=== PATIENT | female | born 1995 | race Caucasian/White ===

== ENCOUNTER 2017-09-16 13:38 | Observation (INO) ==
[2017-09-16] MEDS ORDERED: Ondansetron ODT 4 MG TAB.RAPDIS SL ONE (14:01)
--- NOTE | 2017-09-16 14:03 | Emergency Department Note ---
Disposition Clinical Impression: Abdominal pain Qualifiers: Abdominal location: right lower quadrant Qualified Code(s): R10.31 - Right lower quadrant pain Acute appendicitis Qualifiers: Acute appendicitis type: unspecified acute appendicitis type Qualified Code(s) : K35.80 - Unspecified acute appendicitis Disposition: Admitted As Inpatient Condition: Good Referrals: Jabari Garcia MD [Primary Care Provider] - Forms: ED Satisfaction Letter, Work/School Release Time of Disposition: 17:39 General Adult HPI - General Chief complaint: ED Abdominal Pain Stated complaint: Abd Pain Time Seen by Provider: 09/16/17 13:50 Source: patient Limitations: no limitations Nursing Notes Reviewed: Yes Vital Signs Reviewed: Yes - History of Present Illness HPI Narrative: Mrs. Karimi is a very pleasant 22-year-old female with an unremarkable past medical history who presents to the [facility] emergency department with a chief complaint of abdominal pain. She reports this abdominal pain is sharp in nature and started when she woke up this morning at approximately 6 AM. She reports that this pain has not decreased in intensity. She has associated nausea without any emesis at this time. Patient reports that this pain is localized to her umbilicus that radiates down to the suprapubic region only. She reports the pain feels like "I need to go pee ". Patient did urinate after awakening this morning did not resolve this pain. She denies any dysuria, hematuria, melena or hematochezia. No history of this complaint previously. Patient is currently and sexually active. Her next menstrual period is expected to be next week. Patient is not taking any hjkh-[id number] medication for this complaint, however she is using hydrocodone as prescribed to her after she had a ganglion cyst removed last week by Dr. palma. No alcohol or tobacco abuse. No illicits. No prior surgical abdominal history. No other complaints at this time. Pain Scale: 8 - Related Data Previous Rx's Medication Instructions Recorded HYDROcodone/Acet 10/325 mg [[place] 1 tab PO Q6HR PRN 7 Days #28 tab 09/02/17 10-325 mg] Allergies Allergy/AdvReac Type Severity Reaction Status Date / Time Amoxicillin Allergy Rash Verified 09/02/17 08:13 Penicillins [PCN] Allergy Rash Verified 09/02/17 08:13 Review of Systems: Constitutional: No fever Vision: No blurred vision ENT: No rhinorrhea Respiratory: No cough Allergic: No allergies : No blood in urine GI: No blood in stool Hematologic: No bruising Dermatologic: No skin rash Musculoskeletal: No pain in the extremities Neuro: No numbness of the extremities Past Medical History - Past Medical History Medical history: Reports: no medical history Surgical history: Reports: no surgical history Psychiatric history: Reports: no psych history GEOTHERMAL TECHNICIAN history: Reports: no GEOTHERMAL TECHNICIAN history - Social History Smoking Status: Former smoker Smokeless Tobacco Status: No Alcohol use: Reports: rarely Drug use: Reports: none Physical Exam CONSTITUTIONAL: Alert and oriented X3 in no apparent distress HEAD: Normocephalic; atraumatic. Oropharynx: pink/moist RESP: NRD without use of accessory musculature, CTA b/l with no wheezes/rales/ rhonchi CARD: Regular rhythm, without murmurs, rubs, or gallop ABD: grossly normal, soft, tender to palpation about the umbilicus, suprapubic and RLQ regions, no guarding/distention/rigidity SKIN: normal appearance, no pallor/diaphoresis,mottling,jaundice,cyanosis EXT: DP/Rad pulses 2+ and symmetrical; no lateralizing edema; no other lesions seen PSYCH: appropriate mood/affect - General Limitations: no limitations General appearance: alert Course Course Narrative: Patient was seen and examined at bedside with grandmother present. Vital signs reviewed and unremarkable. Physical examination demonstrates tenderness to palpation about the umbilicus, suprapubic and RLQ regions. There is no distention, rigidity or rebound tenderness. Additional examination was otherwise benign. Patient is going complaining of some nausea but we will order some Zofran sublingual. We will begin workup with urinalysis, urine tests, CBC and BMP. Patient appears comfortable and declined further pain control. This plan was discussed with patient a grandmother who understand and agree. Results pending. 1531: Urinalysis unremarkable as well as CBC and BMP showing a mild leukocytosis of 12.5. UPT negative. She reports that her nausea has resolved and for Zofran. Again she declines further pain control and states that she is comfortable at this time. Given the continued abd pain, we will proceed with a CT abd pelvis with IV contrast as well as IV fluids. This plan was discussed with patient who agrees. 1716: CT showing appendiceal dilation as well as wall thickening consistent with signs of acute appendicitis. General surgery, Dr. Su, was contacted and discussed the case with him. No further recommendations and he accepted this patient for hospital admission. Patient is NPO. IV abx given. Last known meal was breakfast this morning at 7am. Patient was drinking water upon arrival to the ED. Disposition and plan was discussed with patient and family who understand and agree to this plan. All questions and concerns were addressed. Vital Signs Temperature 98.2 F 09/16/17 13:39 Pulse Rate 64 09/16/17 13:39 Respiratory Rate 14 09/16/17 13:39 Blood Pressure 116/72 09/16/17 13:39 O2 Sat by Pulse Oximetry 97 09/16/17 13:39 Temperature 98.2 F 09/16/17 13:39 Pulse Rate 63 09/16/17 16:18 Respiratory Rate 15 09/16/17 16:18 Blood Pressure 104/69 09/16/17 16:18 O2 Sat by Pulse Oximetry 97 09/16/17 16:18 Oxygen Delivery Oxygen Delivery Room Air Medical Decision Making - Medical Records Medical records reviewed: Yes I reviewed the patient's medical records. - Lab Data Lab results reviewed: Yes I reviewed the patient's lab results. Result diagrams: 09/16/17 14:15 09/16/17 14:15 Lab Results 09/16/17 09/16/17 09/16/17 Range/Units 13:52 13:52 14:15 WBC 12.5 H (4.3-11.1) K/mcL RBC 4.54 (3.82-4.97) M/mcL Hgb 13.8 (11.5-15.4) g/dL Hct 39.4 (35.3-44.9) % MCV 86.8 (83.0-100.0) fL MCH 30.4 (28.0-33.3) pg MCHC 35.0 (31.6-35.5) g/dL RDW 11.4 L (11.5-14.5) % Plt Count 167 (140-400) K/mcL MPV 9.1 L (9.4-12.4) fL Immature Gran % 0.5 (0-4) % Seg Neutrophils % 79.0 % Lymphocytes % 12.0 % Monocytes % 7.0 % Eosinophils % 1.2 % Basophils % 0.3 % Neutrophils # 9.9 H (1.6-8.9) K/mcL Lymphocytes # 1.5 (0.6-4.6) K/mcL Monocytes # 0.9 (0.0-1.3) K/mcL Eosinophils # 0.2 (0.0-0.6) K/mcL Basophils # 0.0 (0.0-0.2) K/mcL Sodium (136-145) mEq/L Potassium (3.5-5.1) mEq/L Chloride (98-107) mEq/L Carbon Dioxide (23-29) mEq/L BUN (6-20) mg/dL Creatinine (0.60-1.20) mg/dL Est GFR ( Amer) (> 60) Est GFR (Non-Af Amer) (> 60) BUN/Creatinine Ratio (6-26) Glucose (70-105) mg/dL Calculated Osmolality (280-300) Calcium (8.6-10.3) mg/dL Urine Color Yellow (Yellow) Urine Clarity Clear (Clear) Urine pH 5.5 (5.0-8.0) pH Units Ur Specific [place] 1.030 H (1.010-1.025) Urine Protein Negative (Neg-Trace) mg/dL Urine Glucose (UA) Normal (Normal) mg/dL Urine Ketones 40 H (Negative) mg/dL Urine Blood Negative (Negative) Urine Nitrite Negative (Negative) Urine Bilirubin Negative (Negative) Urine Urobilinogen Normal (Normal) mg/dL Ur Leukocyte Esterase Negative (Negative) Ur Culture Indicated? NO (NO) Urine Test Negative (Negative) 09/16/17 Range/Units 14:15 WBC (4.3-11.1) K/mcL RBC (3.82-4.97) M/mcL Hgb (11.5-15.4) g/dL Hct (35.3-44.9) % MCV (83.0-100.0) fL MCH (28.0-33.3) pg MCHC (31.6-35.5) g/dL RDW (11.5-14.5) % Plt Count (140-400) K/mcL MPV (9.4-12.4) fL Immature Gran % (0-4) % Seg Neutrophils % % Lymphocytes % % Monocytes % % Eosinophils % % Basophils % % Neutrophils # (1.6-8.9) K/mcL Lymphocytes # (0.6-4.6) K/mcL Monocytes # (0.0-1.3) K/mcL Eosinophils # (0.0-0.6) K/mcL Basophils # (0.0-0.2) K/mcL Sodium 134 L (136-145) mEq/L Potassium 3.8 (3.5-5.1) mEq/L Chloride 105 (98-107) mEq/L Carbon Dioxide 24 (23-29) mEq/L BUN 19 (6-20) mg/dL Creatinine 0.60 (0.60-1.20) mg/dL Est GFR ( Amer) > 60 (> 60) Est GFR (Non-Af Amer) > 60 (> 60) BUN/Creatinine Ratio 32 H (6-26) Glucose 92 (70-105) mg/dL Calculated Osmolality 280 (280-300) Calcium 9.0 (8.6-10.3) mg/dL Urine Color (Yellow) Urine Clarity (Clear) Urine pH (5.0-8.0) pH Units Ur Specific [place] (1.010-1.025) Urine Protein (Neg-Trace) mg/dL Urine Glucose (UA) (Normal) mg/dL Urine Ketones (Negative) mg/dL Urine Blood (Negative) Urine Nitrite (Negative) Urine Bilirubin (Negative) Urine Urobilinogen (Normal) mg/dL Ur Leukocyte Esterase (Negative) Ur Culture Indicated? (NO) Urine Test (Negative) - Radiology Data Radiology results reviewed: Yes I reviewed the patient's radiology results. Abdomen/Pelvis CT 09/16/17 15:30 IMPRESSION: Evaluation is limited by respiratory motion artifact. Having said that, there is still evidence of appendiceal dilation with wall thickening, concerning for acute appendicitis. No obvious rupture is identified at this time. D/ / Romain Clay MD / Romain Clay MD Interpreting Provider: Romain Clay MD
[2017-09-16 14:47] LABS: BUN/Creatinine Ratio 32 (6-26); Blood Urea Nitrogen 19 mg/dL (6-20); Carbon Dioxide 24 mEq/L (23-29); Chloride 105 mEq/L (98-107); Glucose 92 mg/dL (70-105); Osmolality,Calculated 280 (280-300); Potassium 3.8 mEq/L (3.5-5.1); Sodium 134 mEq/L (136-145); eGFR For African Americans > 60 (> 60); eGFR For Non-African Americans > 60 (> 60)
[2017-09-16 14:51] LABS: Bilirubin,Urine Negative (Negative); Blood,Urine Negative (Negative); Clarity,Urine Clear (Clear); Color,Urine Yellow (Yellow); Glucose,Urine (UA) Normal (Normal); Ketones,Urine 40 mg/dL (Negative); Leukocyte Esterase,Urine Negative (Negative); Nitrite,Urine Negative (Negative); PH,Urine 5.5 pH Units (5.0-8.0); Protein,Urine Negative (Neg-Trace); Urobilinogen,Urine Normal (Normal)
[2017-09-16 15:01] LABS: Basophils % 0.3 %; Eosinophils # 0.2 K/mcL (0.0-0.6); Eosinophils % 1.2 %; Hematocrit 39.4 % (35.3-44.9); Hemoglobin 13.8 g/dL (11.5-15.4); Immature Granulocytes % 0.5 % (0-4); Lymphocytes # 1.5 K/mcL (0.6-4.6); Mean Corpuscular Hemoglobin 30.4 pg (28.0-33.3); Mean Corpuscular Volume 86.8 fL (83.0-100.0); Mean Platelet Volume 9.1 fL (9.4-12.4); Monocytes # 0.9 K/mcL (0.0-1.3); Neutrophils # 9.9 K/mcL (1.6-8.9); Platelet Count 167 K/mcL (140-400); Red Blood Count 4.54 M/mcL (3.82-4.97); Red Cell Distribution Width 11.4 % (11.5-14.5)
[2017-09-16] MEDS ORDERED: 0.9 % Sodium Chloride 1,000 ML IVC ONE (15:30)
[2017-09-16] MEDS ORDERED: ceFAZolin 2,000 MG in Water for inj. (sterile) 20 ML IVP ONE (17:21)
--- NOTE | 2017-09-16 17:24 | Emergency Department Note ---
Disposition Clinical Impression: Acute appendicitis Abdominal pain Qualifiers: Abdominal location: right lower quadrant Qualified Code(s): R10.31 - Right lower quadrant pain Disposition: Admitted As Inpatient Condition: Good General Adult HPI - General Chief complaint: ED Abdominal Pain Stated complaint: Abd Pain Time Seen by Provider: 09/16/17 13:50 Source: patient Limitations: no limitations - History of Present Illness Pain Scale: 8 - Related Data Previous Rx's Medication Instructions Recorded HYDROcodone/Acet 10/325 mg [[place] 1 tab PO Q6HR PRN 7 Days #28 tab 09/02/17 10-325 mg] Allergies Allergy/AdvReac Type Severity Reaction Status Date / Time Amoxicillin Allergy Rash Verified 09/16/17 18:00 Penicillins [PCN] Allergy Rash Verified 09/16/17 18:00 Past Medical History - Past Medical History Medical history: Reports: no medical history Surgical history: Reports: no surgical history Psychiatric history: Reports: no psych history BEACH ATTENDANT history: Reports: no BEACH ATTENDANT history - Social History Smoking Status: Former smoker Smokeless Tobacco Status: No Alcohol use: Reports: rarely Drug use: Reports: none Physical Exam - General Limitations: no limitations General appearance: alert Course Vital Signs Temperature 98.2 F 09/16/17 13:39 Pulse Rate 64 09/16/17 13:39 Respiratory Rate 14 09/16/17 13:39 Blood Pressure 116/72 09/16/17 13:39 O2 Sat by Pulse Oximetry 97 09/16/17 13:39 Temperature 98.2 F 09/16/17 13:39 Pulse Rate 62 09/16/17 18:46 Respiratory Rate 15 09/16/17 18:46 Blood Pressure 108/64 09/16/17 18:46 O2 Sat by Pulse Oximetry 96 09/16/17 18:46 Oxygen Delivery Oxygen Delivery Room Air Medical Decision Making - Lab Data Result diagrams: 09/16/17 14:15 09/16/17 14:15 Lab Results 09/16/17 09/16/17 09/16/17 Range/Units 13:52 13:52 14:15 WBC 12.5 H (4.3-11.1) K/mcL RBC 4.54 (3.82-4.97) M/mcL Hgb 13.8 (11.5-15.4) g/dL Hct 39.4 (35.3-44.9) % MCV 86.8 (83.0-100.0) fL MCH 30.4 (28.0-33.3) pg MCHC 35.0 (31.6-35.5) g/dL RDW 11.4 L (11.5-14.5) % Plt Count 167 (140-400) K/mcL MPV 9.1 L (9.4-12.4) fL Immature Gran % 0.5 (0-4) % Seg Neutrophils % 79.0 % Lymphocytes % 12.0 % Monocytes % 7.0 % Eosinophils % 1.2 % Basophils % 0.3 % Neutrophils # 9.9 H (1.6-8.9) K/mcL Lymphocytes # 1.5 (0.6-4.6) K/mcL Monocytes # 0.9 (0.0-1.3) K/mcL Eosinophils # 0.2 (0.0-0.6) K/mcL Basophils # 0.0 (0.0-0.2) K/mcL Sodium (136-145) mEq/L Potassium (3.5-5.1) mEq/L Chloride (98-107) mEq/L Carbon Dioxide (23-29) mEq/L BUN (6-20) mg/dL Creatinine (0.60-1.20) mg/dL Est GFR ( Amer) (> 60) Est GFR (Non-Af Amer) (> 60) BUN/Creatinine Ratio (6-26) Glucose (70-105) mg/dL Calculated Osmolality (280-300) Calcium (8.6-10.3) mg/dL Urine Color Yellow (Yellow) Urine Clarity Clear (Clear) Urine pH 5.5 (5.0-8.0) pH Units Ur Specific [place] 1.030 H (1.010-1.025) Urine Protein Negative (Neg-Trace) mg/dL Urine Glucose (UA) Normal (Normal) mg/dL Urine Ketones 40 H (Negative) mg/dL Urine Blood Negative (Negative) Urine Nitrite Negative (Negative) Urine Bilirubin Negative (Negative) Urine Urobilinogen Normal (Normal) mg/dL Ur Leukocyte Esterase Negative (Negative) Ur Culture Indicated? NO (NO) Urine Test Negative (Negative) 09/16/17 Range/Units 14:15 WBC (4.3-11.1) K/mcL RBC (3.82-4.97) M/mcL Hgb (11.5-15.4) g/dL Hct (35.3-44.9) % MCV (83.0-100.0) fL MCH (28.0-33.3) pg MCHC (31.6-35.5) g/dL RDW (11.5-14.5) % Plt Count (140-400) K/mcL MPV (9.4-12.4) fL Immature Gran % (0-4) % Seg Neutrophils % % Lymphocytes % % Monocytes % % Eosinophils % % Basophils % % Neutrophils # (1.6-8.9) K/mcL Lymphocytes # (0.6-4.6) K/mcL Monocytes # (0.0-1.3) K/mcL Eosinophils # (0.0-0.6) K/mcL Basophils # (0.0-0.2) K/mcL Sodium 134 L (136-145) mEq/L Potassium 3.8 (3.5-5.1) mEq/L Chloride 105 (98-107) mEq/L Carbon Dioxide 24 (23-29) mEq/L BUN 19 (6-20) mg/dL Creatinine 0.60 (0.60-1.20) mg/dL Est GFR ( Amer) > 60 (> 60) Est GFR (Non-Af Amer) > 60 (> 60) BUN/Creatinine Ratio 32 H (6-26) Glucose 92 (70-105) mg/dL Calculated Osmolality 280 (280-300) Calcium 9.0 (8.6-10.3) mg/dL Urine Color (Yellow) Urine Clarity (Clear) Urine pH (5.0-8.0) pH Units Ur Specific [place] (1.010-1.025) Urine Protein (Neg-Trace) mg/dL Urine Glucose (UA) (Normal) mg/dL Urine Ketones (Negative) mg/dL Urine Blood (Negative) Urine Nitrite (Negative) Urine Bilirubin (Negative) Urine Urobilinogen (Normal) mg/dL Ur Leukocyte Esterase (Negative) Ur Culture Indicated? (NO) Urine Test (Negative) Attestation Statement - Attestation Attestation: I examined this patient and my medical decision-making was reviewed with the Resident Physician, Dr. Eden. I agree with the documented findings, disposition and treatment plan as described except to the extent set forth below. Patient is a 22-year-old white female who presents to the emergency room with family this morning for lower abdominal pain that began at 6 AM this morning acutely. Patient states that she hurts below her belly button diffusely on both sides and the pain has gradually worsened associated with some nausea. Patient denies any vomiting. She denies any bowel changes, no fevers or chills , no preceding cough or URI symptoms no sore throat. Patient denies any urinary symptoms or flank pain no abnormal vaginal bleeding or vaginal discharge. I agree with patient's physical exam findings as documented. Vital signs are stable. On my assessment patient had right lower quadrant tenderness with some mild guarding but no other peritoneal signs abdomen soft. On assessment I was concerned about possible appendicitis she does have a mild leukocytosis on her lab evaluation and a negative test. Patient was sent for CT abdomen and pelvis with IV contrast which showed evidence of acute appendicitis. Patient will be made nothing by mouth, antibiotics will be started we will contact Dr. villalobos his congressional aide for general surgery to the patient admitted for appendectomy. Patient remains hemodynamically stable at this time.
[2017-09-16] MEDS ORDERED: MetroNIDAZOLE 500 MG/100 ML 500 MG/100 ML BAG IVPB ONE (17:25)
[2017-09-16] MEDS ORDERED: *HR* OxyCODONE Immed Rel 5 MG TABLET PO PRN (20:35)
--- NOTE | 2017-09-16 20:48 | General Surg History&Physical ---
Date of Encounter: 09/16/17 Time of Encounter: 20:15 History of Present Illness Chief complaint: Right lower quadrant abdominal pain, acute appendicitis HPI: Ms. Karimi is a 22 year old female referred for further evaluation and treatment after presenting to [facility] ED with new onset right lower quadrant abdominal pain. Symptoms are described as beginning this morning and progressively worsening through the course of the day. The patient presented to the emergency department for further evaluation and treatment. Evaluation included labwork which showed a leukocytosis of 12.5 with 9.9% neutrophils. Electrolytes were notable for a sodium of 134 otherwise within normal limits including BUN/creatinine. CT abdomen/pelvis demonstrated appendiceal dilatation with wall thickening consistent with early acute appendicitis prompting a surgical referral. Past medical history: Unremarkable Surgical history: Recent excision ganglion cyst right foot Medications: Hydrocodone/acetaminophen following the foot surgery. Sutures were removed from the surgical site earlier today. The patient is on no other routine home at Allergies: Penicillin Social history: Patient admits to an occasional alcoholic beverage; she has never smoked; she denies any illicit drug use She is , lives at home with her spouse Family history: Noncontributory Physical examination: Age-appropriate woman resting comfortably in her hospital bed. She is 1.8 m tall, 86.18 kg, BMI 26.5 The patient has been afebrile; pulse 62, respirations 15, blood pressure 108/ 64; SPO2 on room air 96% Skin: Warm, no obvious jaundice; cutaneous tattoos are evident Lungs: Clear to auscultation bilaterally; no obvious pain on deep inspiration Cardiac: Regular rate, no appreciable murmurs Abdomen: Soft, with minimal tenderness in the right lower quadrant. No discernible intra-abdominal masses, no rebound. Hypoactive bowel sounds. The patient indicates her abdominal pain is diminished since her presentation to the emergency department Extremities: No obvious clubbing cyanosis or edema. Impression: 22-year-old female with new onset right lower quadrant abdominal pain with clinical and radiologic findings consistent with acute appendicitis. Surgery has been recommended and discussed in detail. Alternatives include nonoperative therapy with IV antibiotics and serial abdominal exams. The patient is a good candidate for laparoscopic appendectomy but understands the potential an open appendectomy may become necessary. Risks of surgery include hemorrhage, infection, intra-abdominal abscess, injury to adjacent structures such as bowel, small intestine, ureters, and bladder. If a normal appendix is encountered it will be removed to illuminate this potential diagnosis in the future. The patient has expressed understanding and is willing to proceed with surgery. The patient will be kept NPO but will be allowed to have sips of water and ice chips until 12MN; then meds only until surgery. Surgical consent has been obtained. Past Med Surg Social Fam HX - Past Medical History Medical history: no medical history Psychiatric history: no psych history - Past Surgical History Surgical History: no surgical history - Social History Smoking Status: Former smoker Smokeless Tobacco Status: No Alcohol use: rarely Drug use: none Medications and Allergies HYDROcodone/Acet 10/325 mg [[place] 10-325 mg] 1 tab PO Q6HR PRN 7 Days #28 tab [Rx] 3 Allergy/AdvReac Type Severity Reaction Status Date / Time Amoxicillin Allergy Rash Verified 09/16/17 18:00 Penicillins [PCN] Allergy Rash Verified 09/16/17 18:00 Review of Systems All systems PM: The remainder of the systems were reviewed and are negative General Surgery Exam Initial Vital Signs Temp Pulse Resp BP Pulse Ox 98.2 F 64 14 116/72 97 09/16/17 13:39 09/16/17 13:39 09/16/17 13:39 09/16/17 13:39 09/16/17 13:39 Results - Labs 09/16/17 14:15 09/16/17 14:15 Abnormal lab results WBC 12.5 K/mcL (4.3-11.1) H 09/16/17 14:15 RDW 11.4 % (11.5-14.5) L 09/16/17 14:15 MPV 9.1 fL (9.4-12.4) L 09/16/17 14:15 Neutrophils # 9.9 K/mcL (1.6-8.9) H 09/16/17 14:15 Sodium 134 mEq/L (136-145) L 09/16/17 14:15 BUN/Creatinine Ratio 32 (6-26) H 09/16/17 14:15 Ur Specific [place] 1.030 (1.010-1.025) H 09/16/17 13:52 Urine Ketones 40 mg/dL (Negative) H 09/16/17 13:52 All other labs normal.
[2017-09-16] MEDS: cefOXitin 1,000 MG in Water for inj. (sterile) 20 ML 10 ML IVPB SCH (21:11)
[2017-09-16] MEDS: Ringers Solution, Lactated 1,000 ML IVC SCH (21:13)
[2017-09-17] MEDS: cefOXitin 1,000 MG in Water for inj. (sterile) 20 ML 10 ML IVPB SCH (05:12)
[2017-09-17] MEDS ORDERED: *HR* Succinylcholine 200 MG/10 ML VIAL IVP ONE (07:01)
[2017-09-17] MEDS ORDERED: Ondansetron 4 MG/2 ML VIAL ONE (07:01)
[2017-09-17] MEDS ORDERED: Lidocaine -MPF 4% 5 ML AMPUL ONE (07:01)
[2017-09-17] MEDS ORDERED: Lidocaine -MPF 2% 2 ML VIAL ONE (07:01)
[2017-09-17] MEDS ORDERED: Dexamethasone 4 MG/ML VIAL ONE (07:01)
[2017-09-17] MEDS ORDERED: *HR* Rocuronium Bromide 50 MG/5 ML VIAL ONE (07:01)
[2017-09-17] MEDS: Ringers Solution, Lactated 1,000 ML IVC SCH (07:05)
[2017-09-17] MEDS ORDERED: *HR* FentaNYL (PF) 100 MCG/2 ML VIAL ONE (07:06)
[2017-09-17] MEDS ORDERED: *HR* Propofol 200 MG/20 ML VIAL IVP ONE (07:06)
[2017-09-17] MEDS ORDERED: *HR* Midazolam HCl 2 MG/2 ML VIAL ONE (07:06)
[2017-09-17] MEDS ORDERED: Neostigmine Methylsulfate 3 MG/3 ML SYRINGE ONE (07:13)
[2017-09-17] MEDS ORDERED: Bupivacaine/EPI 1:200k 0.25%PF 10 ML VIAL INFILT ONE (07:15)
--- NOTE | 2017-09-17 07:16 | Anesthesia Evaluation PreOp ---
Date of Encounter: 09/17/17 Time of Encounter: 07:08 - Past History Planned Operation: Lap Appy Cardiac History: Denies any Significant Hx Pulmonary History: Denies Any Significant HX SEPHORA PRODUCT CONSULTANT History: Denies Any Significant HX Other Medical History: Denies Any Significant HX Anesthesia History: No Prior Anesthetic Complications, Past Anesthesia ( Excision Ganglion cyst [R-foot] 08/2017,) Alcohol Use: rarely Drug use: none Medications and Allergies HYDROcodone/Acet 10/325 mg [[place] 10-325 mg] 1 tab PO Q6HR PRN 7 Days #28 tab [Rx] 3 Allergy/AdvReac Type Severity Reaction Status Date / Time Amoxicillin Allergy Rash Verified 09/16/17 18:00 Penicillins [PCN] Allergy Rash Verified 09/16/17 18:00 - Meds/Allergy Pre-op Review Medications Reviewed: Yes Allergies Reviewed: Yes Beta Blockers on Current Med List: No Anesthesia Results - Labs 09/16/17 14:15 09/16/17 14:15 Laboratory Tests 09/02/17 09/16/17 09/16/17 08:10 13:52 14:15 Est GFR (Non-Af Amer) > 60 POC Urine HCG, Qual Negative Urine Test Negative Anesthesia Exam O2 Sat Height 1.8 m Weight 85.998 kg Weight 86.183 kg O2 Sat by Pulse Oximetry 96 O2 Sat by Pulse Oximetry 96 O2 Sat by Pulse Oximetry 97 O2 Sat by Pulse Oximetry 96 O2 Sat by Pulse Oximetry 96 O2 Sat by Pulse Oximetry 97 O2 Sat by Pulse Oximetry 66 O2 Sat by Pulse Oximetry 97 Vital Signs Temp Pulse Resp BP Pulse Ox 98.2 F 64 14 116/72 97 09/16/17 13:39 09/16/17 13:39 09/16/17 13:39 09/16/17 13:39 09/16/17 13:39 Height: 5'11" Weight: 189# BMI = 26.4 NPO (# of Hours): MNoc Pain Scale Used: Numeric (1 - 10) - HEENT Pupil (Motor): Pupils equal, EOMI Mallampati: II Teeth: Normal Oral Opening: Greater than 3 - SEPHORA PRODUCT CONSULTANT LOC: Oriented [employer]PH[employer] PRODUCT CONSULTANT Motor: Normal RUE, Normal LUE, Normal RLE, Normal LLE, Normal Face [employer] PRODUCT CONSULTANT Sensory: Normal: RUE, LUE, RLE, LLE, Face - Cardiac Rhythm: Regular Murmur: None - Pulmonary Breath Sounds: bilateral Clear Respiratory Effort: Symmetrical Anesthesia Assess/Plan ASA Score: 1 Modified [place] Scale for Level of Consciousness: Cooperative, oriented, and tranquil Anesthetic Plan: General Monitoring Plan: Standard Monitors Recovery Plan: PACU Anes Supervising Prov Stmt: Pt seen/evaluated, R&B Discussed, questions answered and consent obtained. Rosalia Mcnamara MD
[2017-09-17] MEDS ORDERED: Acetaminophen IV 1,000 MG/100 ML INFUS..BTL ONE (07:20)
[2017-09-17] MEDS ORDERED: CefOXitin 2,000 MG VIAL ONE (08:04)
[2017-09-17] MEDS ORDERED: *HR* Promethazine 25 MG/ML VIAL IVP PRN (08:34)
[2017-09-17] MEDS ORDERED: Dexamethasone 4 MG/ML VIAL IVP ONE (08:34)
[2017-09-17] MEDS ORDERED: Ondansetron 4 MG/2 ML VIAL IVP ONE (08:34)
[2017-09-17] MEDS ORDERED: Ketorolac 30 MG/ML VIAL ONE (08:50)
[2017-09-17] MEDS: *HR* HYDROmorphone (PF) 1 MG/ML SYRINGE IVP PRN ×2 (09:21→09:28)
--- NOTE | 2017-09-17 09:21 | Operative Note ---
Date of procedure: 09/17/17 Pre-op diagnosis: Acute appendicitis Post-op diagnosis: same Procedure: Laparoscopic appendectomy Complications: None apparent Anesthesia: GETA Local Anesthetics: 0.25% Sensorcaine HCL with Epinephrine 1:200,000 SubQ (cc) ( 30 mL) Surgeon: Wisam Su Was there an preschool teacher assistant present: No Estimated blood loss (cc): 2 IV fluids (cc): 1,300 Specimen: appendix Condition: stable Disposition: PACU Procedure in Detail: The patient was brought to the operating room where she was placed supine on the operating room table. The patient was appropriately identified as to person and procedure. The accuracy of this information was confirmed by the patient and procedure team. The patient was then intubated and anesthetized under the supervision of Dr. Manisha Colon. The abdomen was examined under anesthesia, there were no palpable masses identified. The abdomen was then prepped and draped in usual sterile fashion. Several milliliters of 0.25% bupivacaine with 1-200,000 units epinephrine was infiltrated into the infraumbilical skin. A small transverse incision was made, dissection was extended to the fascia. The fascia was grasped and elevated. Additional bupivacaine with epinephrine was infiltrated before the fascia was incised. An 11 mm Xcel port was established. The rigid laparoscope was placed within the obturator to visualize passage through the layers of the anterior abdominal wall. When the abdomen was accessed, the obturator was replaced by the rigid laparoscope, the abdomen was insufflated with gaseous carbon dioxide. There was no obvious visible injury from establishing the port. Under direct visualization a 5 mm port was established in the suprapubic abdomen and in the left lower quadrant, midclavicular line. Each site was infiltrated with the bupivacaine with epinephrine solution. The cecum was grasped and elevated. An acutely inflamed, nonperforated appendicitis was evident. The mesoappendix was dissected at the junction of the appendix with the cecum. The appendix was transected at its junction with the cecum using a Ethicon ATS 45 mm stapler ( blue cartridge). The mesoappendix was transected with a second application of the Ethicon ATS 45 mm stapler using a vascular cartridge. When the appendix was from the surrounding structures it was placed in an endoscopic pouch and removed via the infraumbilical opening. The appendix was recovered and sent to pathology. The staple lines were inspected and found to be intact. Hemostasis was adequate. There was no other obvious pathology identified within the abdomen or pelvis. The pneumoperitoneum was evacuated. The endoscopic instrumentation removed. The fascia of the infraumbilical opening was approximated with interrupted [id number] 0 Vicryl using S retractors. The port sites were closed with subcuticular 4-0 Vicryl. The incisions were sealed with Dermabond dermal adhesive. The patient was taken to recovery in stable condition. Needle, sponge, and instrument counts were correct at the close of the case. Total volume of 0.25% bupivacaine with 1 200,000 epinephrine , 30 mL.
[2017-09-17] MEDS ORDERED: *HR* OxyCODONE Immed Rel 5 MG TABLET PO ONE (09:50)
[2017-09-17] MEDS ORDERED: Acetaminophen 325 MG TABLET PO PRN (10:14)
[2017-09-17] MEDS ORDERED: Ringers Solution, Lactated 1,000 ML IVC SCH (10:14)
[2017-09-17] MEDS ORDERED: *HR* OxyCODONE/APAP 5/325 TABLET PO PRN (10:14)
[2017-09-17] MEDS ORDERED: Ondansetron 4 MG/2 ML VIAL IVP PRN (10:14)
[2017-09-17] MEDS ORDERED: Ringers Solution, Lactated 500 ML IVC ONE (10:14)
[2017-09-17 13:25] VITALS: BP 92/54
--- NOTE | 2017-09-17 13:25 | Discharge Summary ---
Outpatient Proc Discharge Plan - Plan Additional Instructions: Regular diet Patient may shower, wash incisions with soap and water Activities as tolerated; lifting limited to less than 20 [address] for at least 24 hours following administration of anesthesia Tylenol, ibuprofen, Motrin, Advil, Aleve, etc. as needed for pain Prescription for hydrocodone 5/325, #16, one every 6 hours as needed for pain not relieved by [id number] medications Outpatient follow-up in the office; 09/25/17; patient: Office in a.m. to make this appointment Prescriptions: HYDROcodone/Acet 5/325 mg [[place] 5-325 mg] 1 tab PO Q6H PRN 4 Days #16 tab PRN Reason: Pain Home Medications: HYDROcodone/Acet 10/325 mg [[place] 10-325 mg] 1 tab PO Q6HR PRN 7 Days #28 tab [Rx] Acetaminophen [Tylenol] 650 mg PO Q6HR PRN tablet 09/17/17 [Rx] HYDROcodone/Acet 5/325 mg [[place] 5-325 mg] 1 tab PO Q6H PRN 4 Days #16 tab 09/17 [Rx]
--- NOTE | 2017-09-17 16:49 | Anesthesia Evaluation Post Op ---
Date of Encounter: 09/17/17 Time of Encounter: 10:15 - Vital Signs Vital Signs: Vital Signs Temp Pulse Resp BP Pulse Ox 09/17/17 10:07 97.8 F 55 13 102/64 96 09/17/17 09:57 54 10 100/63 96 09/17/17 09:47 52 11 100/71 95 09/17/17 09:37 97.8 F 55 11 101/66 97 09/17/17 09:27 56 12 103/69 98 09/17/17 09:17 54 13 106/69 99 09/17/17 09:07 97.4 F L 60 12 100/60 98 Intake and Output 09/17/17 09/17/17 09/17/17 07:59 15:59 23:59 Intake Total 1010 / 1010 360 / 360 Output Total 100 / 100 2 / 2 Balance 910 / 910 358 / 358 Intake: IV Fluids 1010 / 1010 Lactated Ringers 1,000 ML @ 100 1000 / 1000 mls/hr IVC .Q10H DIANA Rx#: [id number] Mefoxin 1,000 MG In Water for inj. (sterile) 10 ML @ 150 mls/ hr IVPB Q8H DIANA Rx#:[id number] Oral 0 / 0 360 / 360 Output: Urine 100 / 100 Estimated Blood Loss 2 / 2 Other: Meal Lunch Percent of Meal Consumed 100% Weight 85.998 kg Blood Glucose* 71 Patient Weight 09/17/17 23:59 Weight 85.998 kg - Lungs Lungs: Clear Ascult./Percussion - Airway Airway: Non-obstructed - Cardiovascular Regular Rate - Mental Status Mental Status: Alert & Oriented, Answers Appropriately - Pain Pain Scale: 3 Pain Scale used: Numeric (1 - 10) - Nausea Vomiting Nausea Vomiting: Not Present - Hydration Hydration: Tolerates oral liquids, Has not voided - Discharge PostOp Status: Transfer Patient to floor Anes Supervising Prov Stmt: Pt seen/evaluated, VSS And pt has met criteria for discharge to floor. - MD Naima
== END 2017-09-17 13:52 | disposition home or self-care (01) ==
LOC: EMEROO 13:38 → 3ANU 13:38
PROVIDERS: ADMIT Surgery; ATTEND Surgery

== ENCOUNTER → 2021-06-19 16:57 | Observation (INO) ==
[2021-06-19 15:37] LABS: Basophils % 0.2 %; Eosinophils # 0.1 K/mcL (0.0-0.6); Eosinophils % 1.2 %; Hematocrit 39.3 % (35.3-44.9); Hemoglobin 13.1 g/dL (11.5-15.4); Immature Granulocytes % 0.4 % (0-4); Lymphocytes # 0.8 K/mcL (0.6-4.6); Mean Corpuscular HGB Conc 33.3 g/dL (31.6-35.5); Mean Corpuscular Hemoglobin 27.3 pg (28.0-33.3); Mean Platelet Volume 9.5 fL (9.4-12.4); Monocytes # 0.6 K/mcL (0.0-1.3); Monocytes % 7.1 %; Neutrophils # 7.4 K/mcL (1.6-8.9); Platelet Count 189 K/mcL (140-400); Red Blood Count 4.79 M/mcL (3.82-4.97); Segmented Neutrophils % 82.1 %
[2021-06-19 15:53] LABS: Alanine Aminotransferase 26 Units/L (7-52); Aspartate Amino Transferase 21 Units/L (13-39); BUN/Creatinine Ratio 15 (6-26); Blood Urea Nitrogen 9 mg/dL (6-20); Lactate Dehydrogenase 141 Units/L (140-271); Uric Acid 3.3 mg/dL (2.3-7.6); eGFR For African Americans > 60 (> 60); eGFR For Non-African Americans > 60 (> 60)
[2021-06-19 16:20] LABS: Protein/Creatinine Ratio,Urine 0.14 mg/mg (0.00-0.20)
[2021-06-19 16:48] LABS: Bacteria,Urine Moderate per hpf (None-Few); Bilirubin,Urine Negative (Negative); Blood,Urine Negative (Negative); Calcium Oxalate Crystals,Urine Present per hpf; Clarity,Urine Ex.Turbid (Clear); Color,Urine Yellow (Yellow); Glucose,Urine (UA) Normal (Normal); Ketones,Urine Negative (Negative); Leukocyte Esterase,Urine Small (Negative); Mucus,Urine Many per lpf (None-Few); Nitrite,Urine Negative (Negative); Protein,Urine 200 mg/dL (Neg-Trace); Renal Epithelial Cells,Urine Few per hpf (None-Few); Specific Gravity,Urine > 1.030 (1.010-1.025); Squamous Epithelial Cell,Urine Moderate per hpf (None-Few); Transitional Epi Cells,Urine Few per hpf (None-Few); Urobilinogen,Urine Normal (Normal); WBC,Urine 50-100 per hpf (0-3)
== END | disposition home or self-care (01) ==
LOC: 1NENULAB
PROVIDERS: ADMIT Registered Nurse; ATTEND Registered Nurse

== ENCOUNTER → 2021-07-29 23:41 | Observation (INO) | END | disposition home or self-care (01) | LOC: 1NENULAB | PROVIDERS: ADMIT Student in an Organized Health Care Education/Training Program; ATTEND Student in an Organized Health Care Education/Training Program ==

== ENCOUNTER 2021-08-01 05:59 | Inpatient (IN) ==
[2021-08-01] MEDS ORDERED: Naloxone 0.4 MG/ML INJ IVP PRN ×2 (06:19→19:18)
[2021-08-01] MEDS ORDERED: miSOPROStoL 25 MCG TABLET PO PRN (06:19)
[2021-08-01] MEDS ORDERED: Azithromycin 500 MG in 0.9 % Sodium Chloride 250 ML IVPB PRN (06:19)
[2021-08-01] MEDS ORDERED: Metoclopramide 10 MG/2 ML VIAL IVP PRN (06:19)
[2021-08-01] MEDS ORDERED: Famotidine 20 MG/2 ML VIAL IVP PRN (06:19)
[2021-08-01] MEDS ORDERED: Ondansetron 4 MG/2 ML VIAL IVP PRN ×2 (06:19→19:18)
[2021-08-01 08:26] LABS: Basophils % 0.3 %; Eosinophils # 0.1 K/mcL (0.0-0.6); Eosinophils % 1.1 %; Hemoglobin 12.3 g/dL (11.5-15.4); Immature Granulocytes % 0.6 % (0-4); Lymphocytes # 1.7 K/mcL (0.6-4.6); Lymphocytes % 21.2 %; Mean Corpuscular HGB Conc 33.2 g/dL (31.6-35.5); Mean Corpuscular Volume 81.1 fL (83.0-100.0); Mean Platelet Volume 9.9 fL (9.4-12.4); Monocytes # 0.7 K/mcL (0.0-1.3); Monocytes % 8.3 %; Neutrophils # 5.5 K/mcL (1.6-8.9); Platelet Count 228 K/mcL (140-400); Red Blood Count 4.56 M/mcL (3.82-4.97); Red Cell Distribution Width 13.1 % (11.5-14.5); Segmented Neutrophils % 68.5 %
[2021-08-01 08:46] LABS: Influenza A PCR Negative (Negative); Influenza B PCR Negative (Negative); Resp. Syncytial Virus PCR Negative (Negative)
[2021-08-01 08:51] LABS: SARS-CoV-2 by PCR (In House) Negative (Negative)
[2021-08-01 09:24] LABS: Bilirubin,Urine Negative (Negative); Blood,Urine Negative (Negative); Clarity,Urine Turbid (Clear); Color,Urine Yellow (Yellow); Glucose,Urine (UA) Normal (Normal); Ketones,Urine Trace mg/dL (Negative); Leukocyte Esterase,Urine Negative (Negative); Nitrite,Urine Negative (Negative); Protein,Urine 100 mg/dL (Neg-Trace); Specific Gravity,Urine > 1.030 (1.010-1.025)
[2021-08-01 09:25] LABS: Calcium Oxalate Crystals,Urine Present per hpf; Squamous Epithelial Cell,Urine Few per hpf (None-Few); WBC,Urine 0-3 per hpf (0-3)
[2021-08-01 09:26] LABS: Bacteria,Urine Few per hpf (None-Few)
[2021-08-01] MEDS: *HR* Nalbuphine 10 MG/ML AMPUL IV PRN ×2 (11:33→13:34)
[2021-08-01] MEDS ORDERED: Oxytocin 20 units/ LR 1000 mL 20 UNIT/1,000 ML BAG IVC SCH (13:30)
[2021-08-01] MEDS: Ringers Solution, Lactated 1,000 ML IVC SCH ×4 (13:33→22:19)
[2021-08-01] MEDS ORDERED: Epidural Premix (fent/bupiv) 110 ML EP ONE (18:39)
[2021-08-01] MEDS ORDERED: Ropivacaine/PF 0.2% 20 ML VIAL ONE (18:40)
[2021-08-01] MEDS ORDERED: *HR* FentaNYL (PF) 100 MCG/2 ML VIAL EP ONE (19:18)
[2021-08-01] MEDS ORDERED: EPHEDrine 50 MG/ML VIAL IVP PRN (19:18)
[2021-08-01] MEDS ORDERED: Ropivacaine/PF 0.2% 20 ML VIAL EP ONE (19:18)
[2021-08-01] MEDS ORDERED: Epidural Premix (fent/bupiv) 110 ML EP SCH (19:30)
[2021-08-02] MEDS ORDERED: *HR* Ropivacaine/PF 0.5% 20 ML VIAL ONE (03:23)
[2021-08-02] MEDS ORDERED: *HR* FentaNYL (PF) 100 MCG/2 ML VIAL ONE ×3 (07:34→13:57)
[2021-08-02] MEDS ORDERED: Ropivacaine/PF 0.2% 20 ML VIAL ONE (07:34)
[2021-08-02] MEDS ORDERED: Bupivacaine-MPF 0.25% 10 ML VIAL ONE (07:41)
[2021-08-02] MEDS: Ringers Solution, Lactated 1,000 ML IVC SCH (12:27)
[2021-08-02] MEDS ORDERED: Oxytocin 20 units/ LR 1000 mL 20 UNIT/1,000 ML BAG IVC ONE (12:32)
[2021-08-02] MEDS ORDERED: Metoclopramide 10 MG/2 ML VIAL IVP ONE (12:32)
[2021-08-02] MEDS ORDERED: SODIUM CHLORIDE 0.9% IVPB ONE (12:32)
[2021-08-02] MEDS ORDERED: Famotidine 20 MG/2 ML VIAL IVP ONE (12:32)
[2021-08-02] MEDS ORDERED: Clindamycin 900 MG/50 ML 900 MG/50 ML IV.SOLN IVPB ONE (12:32)
[2021-08-02] MEDS ORDERED: GENTAMICIN IVPB ONE (12:32)
[2021-08-02] MEDS ORDERED: Lidocaine/EPI 1:200k 2% PF 20 ML VIAL ONE ×2 (13:24→13:57)
[2021-08-02] MEDS ORDERED: Ondansetron 4 MG/2 ML VIAL ONE (13:34)
[2021-08-02] MEDS ORDERED: *HR* Oxytocin 10 UNIT/ML VIAL ONE (14:21)
[2021-08-02] MEDS ORDERED: *HR* Midazolam HCl 2 MG/2 ML VIAL ONE (14:24)
[2021-08-02] MEDS ORDERED: Acetaminophen IV 1,000 MG/100 ML BAG IVPB ONE (14:27)
[2021-08-02] MEDS ORDERED: *HR* Morphine Sulfate/PF 10 MG/10 ML AMPUL ONE (14:35)
[2021-08-02] MEDS ORDERED: Ketorolac 30 MG/ML VIAL ONE (15:11)
[2021-08-02] MEDS ORDERED: *HR* FentaNYL (PF) 100 MCG/2 ML VIAL IVP PRN (15:44)
[2021-08-02] MEDS ORDERED: *HR* OxyCODONE Immed Rel 5 MG TABLET PO PRN (15:44)
[2021-08-02] MEDS ORDERED: Promethazine 6.25 MG in Water for inj. (sterile) 20 ML IVPB PRN (15:44)
[2021-08-02] MEDS ORDERED: Naloxone 0.4 MG/ML INJ IVP PRN (15:44)
[2021-08-02] MEDS ORDERED: Oxytocin 20 units/ LR 1000 mL 20 UNIT/1,000 ML BAG IVC SCH ×2 (18:06)
[2021-08-02] MEDS ORDERED: Ondansetron 4 MG/2 ML VIAL IVP PRN (18:06)
[2021-08-02] MEDS ORDERED: Metoclopramide 10 MG/2 ML VIAL IVP PRN (18:06)
[2021-08-02] MEDS: Acetaminophen 325 MG TABLET PO SCH ×2 (18:58→20:23)
[2021-08-02] MEDS: Ibuprofen 600 MG TABLET PO SCH ×2 (18:58→20:24)
[2021-08-02] MEDS: metroNIDAZOLE 500 MG TABLET PO SCH (20:24)
[2021-08-02] MEDS ORDERED: *HR* Enoxaparin 60 MG/0.6 ML SYRINGE SQ SCH (21:00)
[2021-08-03] MEDS: Ibuprofen 600 MG TABLET PO SCH ×3 (04:53→17:56)
[2021-08-03] MEDS: Acetaminophen 325 MG TABLET PO SCH ×3 (04:53→18:22)
[2021-08-03] MEDS: *HR* OxyCODONE Immed Rel 5 MG TABLET PO PRN ×5 (04:54→22:45)
[2021-08-03] MEDS: *HR* Enoxaparin 60 MG/0.6 ML SYRINGE SQ SCH ×2 (04:56→18:22)
[2021-08-03 05:27] LABS: Basophils % 0.1 %; Eosinophils % 0.2 %; Hematocrit 32.1 % (35.3-44.9); Immature Granulocytes % 0.5 % (0-4); Lymphocytes # 0.8 K/mcL (0.6-4.6); Lymphocytes % 4.6 %; Mean Corpuscular HGB Conc 32.7 g/dL (31.6-35.5); Mean Corpuscular Hemoglobin 26.6 pg (28.0-33.3); Mean Corpuscular Volume 81.5 fL (83.0-100.0); Mean Platelet Volume 9.8 fL (9.4-12.4); Monocytes # 0.9 K/mcL (0.0-1.3); Monocytes % 5.5 %; Neutrophils # 14.8 K/mcL (1.6-8.9); Platelet Count 181 K/mcL (140-400); Red Blood Count 3.94 M/mcL (3.82-4.97); Red Cell Distribution Width 13.2 % (11.5-14.5); Segmented Neutrophils % 89.1 %
[2021-08-03 05:41] LABS: Hemoglobin 10.5 g/dL (11.5-15.4); White Blood Count 16.6 K/mcL (4.3-11.1)
[2021-08-03] MEDS: Prenatal Vit/FA 1 EACH TABLET PO SCH (09:53)
[2021-08-03] MEDS: Simethicone 80 MG TAB.CHEW PO PRN ×2 (09:54→17:58)
[2021-08-03] MEDS: metroNIDAZOLE 500 MG TABLET PO SCH ×3 (09:54→20:52)
[2021-08-03] MEDS ORDERED: *HR* OxyCODONE Immed Rel 5 MG TABLET PO ONE (18:31)
[2021-08-04] MEDS: Acetaminophen 325 MG TABLET PO SCH ×5 (00:06→21:04)
[2021-08-04] MEDS: Ibuprofen 600 MG TABLET PO SCH ×4 (00:06→21:04)
[2021-08-04] MEDS: *HR* OxyCODONE Immed Rel 5 MG TABLET PO PRN ×4 (02:47→21:05)
[2021-08-04] MEDS: Simethicone 80 MG TAB.CHEW PO PRN (03:40)
[2021-08-04] MEDS: *HR* Enoxaparin 60 MG/0.6 ML SYRINGE SQ SCH ×2 (06:57→18:01)
[2021-08-04] MEDS: Prenatal Vit/FA 1 EACH TABLET PO SCH (08:34)
[2021-08-04] MEDS: metroNIDAZOLE 500 MG TABLET PO SCH ×2 (08:34→14:02)
[2021-08-04] MEDS ORDERED: SODIUM CHLORIDE 0.9% IVPB ONE (10:00)
[2021-08-04] MEDS ORDERED: GENTAMICIN IVPB ONE (10:00)
[2021-08-04] MEDS ORDERED: *HR* OxyCODONE Immed Rel 5 MG TABLET PO ONE (15:38)
[2021-08-04 16:13] LABS: Basophils % 0.2 %; Eosinophils # 0.1 K/mcL (0.0-0.6); Eosinophils % 0.4 %; Hematocrit 30.1 % (35.3-44.9); Hemoglobin 9.7 g/dL (11.5-15.4); Immature Granulocytes % 1.4 % (0-4); Lymphocytes # 0.7 K/mcL (0.6-4.6); Lymphocytes % 4.3 %; Mean Corpuscular HGB Conc 32.2 g/dL (31.6-35.5); Mean Corpuscular Hemoglobin 26.5 pg (28.0-33.3); Mean Corpuscular Volume 82.2 fL (83.0-100.0); Mean Platelet Volume 9.4 fL (9.4-12.4); Monocytes % 6.2 %; Neutrophils # 13.9 K/mcL (1.6-8.9); Platelet Count 192 K/mcL (140-400); Red Blood Count 3.66 M/mcL (3.82-4.97); Red Cell Distribution Width 13.8 % (11.5-14.5); Segmented Neutrophils % 87.5 %; White Blood Count 15.9 K/mcL (4.3-11.1)
[2021-08-04] MEDS ORDERED: Acetaminophen 325 MG TABLET PO SCH (18:00)
[2021-08-05] MEDS: Ibuprofen 600 MG TABLET PO SCH ×2 (03:06→08:46)
[2021-08-05] MEDS: Acetaminophen 325 MG TABLET PO SCH ×2 (03:07→08:46)
[2021-08-05] MEDS: *HR* OxyCODONE Immed Rel 5 MG TABLET PO PRN ×2 (03:09→07:49)
[2021-08-05] MEDS: *HR* Enoxaparin 60 MG/0.6 ML SYRINGE SQ SCH (06:34)
[2021-08-05 06:40] VITALS: BP 118/78; PULSE 79; TEMP 97.9; O2SAT 98
[2021-08-05] MEDS: Prenatal Vit/FA 1 EACH TABLET PO SCH (07:49)
== END 2021-08-05 11:16 | disposition home or self-care (01) | DRG 788 ==
LOC: 1NENULAB 05:59 → 1NENUOBS 08-02 17:48
PROVIDERS: ADMIT Obstetrics & Gynecology; ATTEND Obstetrics & Gynecology

== ENCOUNTER → 2021-08-07 22:13 | Observation (INO) | END | disposition home or self-care (01) | LOC: 1NENULAB | PROVIDERS: ADMIT Advanced Practice Midwife; ATTEND Advanced Practice Midwife ==